=== PATIENT | female | born 1980 | race Caucasian/White ===

== ENCOUNTER 2016-09-17 16:21 | Emergency (ER) | payer BC ==
[2016-09-17] MEDS ORDERED: HYDROmorphone INJ* 1 MG/ML CARPUJECT SYRINGE IV ONE ×2 (17:17→19:29)
[2016-09-17] MEDS ORDERED: Ondansetron INJ* 2 MG/ML VIAL IV ONE ×2 (17:17→19:29)
[2016-09-17] MEDS ORDERED: NS 0.9% 1000 ML* 1,000 ML IV ONE ×2 (17:17→19:29)
[2016-09-17 17:55] LABS: Hematocrit 40 % (35-47); Hemoglobin 12.7 g/dl (12.0-16.0); Mean Corpuscular HGB Conc 32 g/dl (31-36); Mean Corpuscular Hemoglobin 26 pg (27-31); Mean Corpuscular Volume 80 fL (80-97); Mean Platelet Volume 9 um3 (7.4-10.4); Red Blood Count 4.96 10^6/ul (4.0-5.4); Red Cell Distribution Width 15 % (10.5-15)
[2016-09-17 18:07] LABS: Albumin 4.4 g/dL (3.2-5.2); BUN/Creatinine Ratio 14.3 (8-20); C Reactive Protein 6.92 mg/L (< 5.00); Calcium 9.4 mg/dL (8.6-10.3); EGFR African American 110.4 (>60); EGFR Non-African American 85.8 (>60); Globulin 3.3 g/dL (2-4); Magnesium 2.6 mg/dL (1.9-2.7); Potassium 3.4 mmol/L (3.5-5.0); Total Bilirubin 0.9 mg/dL (0.2-1.0); Total Protein 7.7 g/dL (6.4-8.9)
[2016-09-17] MEDS ORDERED: Iohexol 300* (CONTRAST) 10 ML SDV IV ONE (18:25)
[2016-09-17 18:39] LABS: Urine Bacteria Absent (Absent); Urine Bilirubin Negative (Negative); Urine Glucose Negative (Negative); Urine Nitrite Negative (Negative)
--- NOTE | 2016-09-17 19:31 | RAD ---
INDICATION: Epigastric pain status post endoscopy. COMPARISON: Comparison is made with a prior CT of the abdomen and pelvis from February 28, 2011. TECHNIQUE: A CT scan of the abdomen and pelvis was performed with intravenous and oral contrast following intravenous injection of 133 ml of Omnipaque 300 nonionic contrast. Contiguous axial sections were obtained from the lung bases through the symphysis pubis. Images were reconstructed in the coronal and sagittal planes. FINDINGS: There is mild dependent bilateral lower lobe subsegmental atelectasis. No pleural effusion is present. The liver and spleen are normal in size. The liver is decreased in attenuation consistent with fatty infiltration. No significant focal hepatic abnormality is seen. The patient is status post cholecystectomy. The pancreas appears to be within normal limits. The kidneys and adrenal glands are normal in size. No hydronephrosis is seen. No significant focal renal abnormality is seen. The aorta is normal in caliber and demonstrates homogeneous contrast opacification. No significant enlarged retroperitoneal lymph nodes are seen. The stomach is moderately distended with contrast. The small bowel and colon appear nondistended. The appendix is within normal limits. There is no evidence for diverticulitis or colitis. There is mild descending and sigmoid diverticulosis. The uterus is anteverted and mildly enlarged. There is a 1.5 cm left ovarian cyst. No free intraperitoneal air or fluid is seen. No significant focal osseous abnormality is seen. IMPRESSION: 1. NO EVIDENCE FOR ACUTE FINDING OR CAUSE FOR THE PATIENT'S ABDOMINAL PAIN IS SEEN. 2. STATUS POST CHOLECYSTECTOMY. 3. HEPATIC STENOSIS. 4. MILDLY ENLARGED UTERUS.
[2016-09-17] MEDS ORDERED: Cholestyramine Resin* 4 GM POWDER PO ONE (20:03)
[2016-09-17] MEDS ORDERED: oxyCODONE/Acetamin 5/325 MG* TAB PO ONE (20:05)
--- NOTE | 2016-09-17 20:09 | ED ---
Erinn Johnson Erika, scribed for Sarina Oliver MD on 09/17/16 at 1939 . Abdominal Pain/Female - HPI Summary HPI Summary: Patient is a 36-year-old female presenting to the ED with a CC of worsening abdominal pain for the past 3 weeks. She describes the pain as epigastric, and states it is aggravated by PO intake and BMs. Today, patient had an endoscopy at [facility] at 15:10, which did not reveal any findings. She states that pain after the endoscopy is not worse than pain before the endoscopy. Hx hemorrhoid, cholecystectomy, tonsillectomy. FHx diabetes. Pt works as a pharmacy grad intern , lives with her , and denies drinking, smoking, or using illicit drugs. PCP Dr. Garcia. - History of Current Complaint Chief Complaint: EDAbdPain Stated Complaint: ABD PAIN Hx Obtained From: Patient, Family/Director Funds Development - Hx Last Menstrual Period: 2.5 WEEKS AGO Onset/Duration: Gradual Onset, Lasting Weeks, Still Present Timing: Constant Severity Currently: Moderate Pain Intensity: 10 Pain Scale Used: 0-10 Numeric Location: Discrete At: RUQ Aggravating Factor(s): Food Alleviating Factor(s): Nothing Associated Signs and Symptoms: Positive: Negative Allergies/Adverse Reactions: Allergies Allergy/AdvReac Type Severity Reaction Status Date / Time Amoxicillin Allergy Severe Difficulty Verified 01/25/16 09:30 Breathing Aspirin Allergy Severe Difficulty Verified 01/25/16 09:30 Breathing Pseudoephedrine Allergy Severe Difficulty Verified 01/25/16 09:30 [From Actifed] Breathing Triprolidine [From Actifed] Allergy Severe Difficulty Verified 01/25/16 09:30 Breathing Doxycycline Allergy Vomiting Verified 01/25/16 09:30 Penicillin Allergy Difficulty Uncoded 01/02/16 08:38 Breathing PMH/Surg Hx/FS Hx/Imm Hx Endocrine/Hematology History: Denies: Hx Anticoagulant Therapy, Hx Diabetes, Hx Thyroid Disease Cardiovascular History: Denies: Hx Congestive Heart Failure, Hx Deep Vein Thrombosis, Hx Hypertension , Hx Myocardial Infarction, Hx Pacemaker/ICD Respiratory History: Denies: Hx Asthma, Hx Chronic Obstructive Pulmonary Disease (COPD), Hx Lung Cancer, Hx Pneumonia, Hx Pulmonary Embolism GI History: Reports: Hx Ulcer - reflux Denies: Hx Gall Bladder Disease, Hx Gastrointestinal Bleed, Hx Urosepsis History: Denies: Hx Kidney Stones, Hx Renal Disease Sensory History: Denies: Hx Hearing Aid Neurological History: Denies: Hx Dementia, Hx Migraine, Hx Seizures, Hx Transient Ischemic Attacks (TIA) Psychiatric History: Reports: Hx Anxiety, Hx Depression Denies: Hx Panic Disorder - Surgical History Surgery Procedure, Year, and Place: Carpal tunnel right 03/27. Sinus surgery 2010,. GALLBLADDER Infectious Disease History: No Infectious Disease History: Denies: Hx Clostridium Difficile, Hx Hepatitis, Hx Human Immunodeficiency Virus (HIV), Hx of Known/Suspected MRSA, Hx Shingles, Hx Tuberculosis, Hx Known/ Suspected VRE, Hx Known/Suspected VRSA, History Other Infectious Disease, Traveled Outside the [place] in Last 30 Days - Family History Known Family History: Positive: Cardiac Disease, Diabetes - Social History Occupation: Employed Full-time Lives: With Family Alcohol Use: Rare Substance Use Type: Reports: None Smoking Status (MU): Never Smoked Tobacco Review of Systems Negative: Fever Positive: Abdominal Pain All Other Systems Reviewed And Are Negative: Yes Physical Exam Triage Information Reviewed: Yes Vital Signs On Initial Exam: Initial Vitals Temp Pulse Resp BP Pulse Ox 97.9 F 91 16 117/74 100 09/17/16 16:26 09/17/16 16:26 09/17/16 16:26 09/17/16 16:26 09/17/16 16:26 Vital Signs Reviewed: Yes Appearance: Positive: Well-Appearing, Pain Distress - moderate Skin: Positive: Warm, Skin Color Reflects Adequate Perfusion, Dry Eyes: Positive: EOMI, MESFIN ENT: Positive: Pharynx normal, TMs normal Neck: Positive: Supple, Nontender Respiratory/Lung Sounds: Positive: Clear to Auscultation, Breath Sounds Present. Negative: Rales, Rhonchi, Wheezes Cardiovascular: Positive: RRR, Other - No gallops. Negative: Murmur, Rub Abdomen Description: Positive: Soft, Other: - No rebound. Diffuse abdominal tenderness. Negative: Distended, Guarding Bowel Sounds: Positive: Present Musculoskeletal: Positive: Other - GLORIA, no edema Neurological: Positive: Sensory/Motor Intact, Alert, Oriented to Person Place, Time, Other - CN II-XII intact Psychiatric: Positive: Affect/Mood Appropriate Diagnostics - Vital Signs Vital Signs Temp Pulse Resp BP Pulse Ox 09/17/16 16:26 97.9 F 91 16 117/74 100 - Laboratory Lab Results: Lab Results 09/17/16 09/17/16 09/17/16 Range/Units 17:00 17:00 17:00 WBC 11.0 H (3.5-10.8) 10^3/ul RBC 4.96 (4.0-5.4) 10^6/ul Hgb 12.7 (12.0-16.0) g/dl Hct 40 (35-47) % MCV 80 (80-97) fL MCH 26 L (27-31) pg MCHC 32 (31-36) g/dl RDW 15 (10.5-15) % Plt Count 317 (150-450) 10^3/ul MPV 9 (7.4-10.4) um3 Neut % (Auto) 53.1 (38-83) % Lymph % (Auto) 40.4 (25-47) % [place] % (Auto) 5.4 (1-9) % Eos % (Auto) 0.7 (0-6) % Baso % (Auto) 0.4 (0-2) % Absolute Neuts (auto) 5.9 (1.5-7.7) 10^3/ul Absolute Lymphs (auto) 4.4 (1.0-4.8) 10^3/ul Absolute Monos (auto) 0.6 (0-0.8) 10^3/ul Absolute Eos (auto) 0.1 (0-0.6) 10^3/ul Absolute Basos (auto) 0 (0-0.2) 10^3/ul Absolute Nucleated RBC 0.01 10^3/ul Nucleated RBC % 0.1 Sodium 135 (133-145) mmol/L Potassium 3.4 L (3.5-5.0) mmol/L Chloride 99 L (101-111) mmol/L Carbon Dioxide 30 (22-32) mmol/L Anion Gap 6 (2-11) mmol/L BUN 11 (6-24) mg/dL Creatinine 0.77 (0.51-0.95) mg/dL Est GFR ( Amer) 110.4 (>60) Est GFR (Non-Af Amer) 85.8 (>60) BUN/Creatinine Ratio 14.3 (8-20) Glucose 80 (70-100) mg/dL Lactic Acid 0.7 (0.5-2.0) mmol/L Calcium 9.4 (8.6-10.3) mg/dL Magnesium 2.6 (1.9-2.7) mg/dL Total Bilirubin 0.90 (0.2-1.0) mg/dL AST 14 (13-39) U/L ALT 10 (7-52) U/L Alkaline Phosphatase 33 L (34-104) U/L C-Reactive Protein 6.92 H (< 5.00) mg/L Total Protein 7.7 (6.4-8.9) g/dL Albumin 4.4 (3.2-5.2) g/dL Globulin 3.3 (2-4) g/dL Albumin/Globulin Ratio 1.3 (1-3) Lipase 15 (11.0-82.0) U/L Urine Color Urine Appearance Urine pH (5-9) Ur Specific [place] (1.010-1.030) Urine Protein (Negative) Urine Ketones (Negative) Urine Blood (Negative) Urine Nitrate (Negative) Urine Bilirubin (Negative) Urine Urobilinogen (Negative) Ur Leukocyte Esterase (Negative) Urine WBC (Auto) (Absent) Urine RBC (Auto) (Absent) Ur Squamous Epith Cells (Absent) Urine Bacteria (Absent) Urine Glucose (Negative) 09/17/16 Range/Units 17:59 WBC (3.5-10.8) 10^3/ul RBC (4.0-5.4) 10^6/ul Hgb (12.0-16.0) g/dl Hct (35-47) % MCV (80-97) fL MCH (27-31) pg MCHC (31-36) g/dl RDW (10.5-15) % Plt Count (150-450) 10^3/ul MPV (7.4-10.4) um3 Neut % (Auto) (38-83) % Lymph % (Auto) (25-47) % [place] % (Auto) (1-9) % Eos % (Auto) (0-6) % Baso % (Auto) (0-2) % Absolute Neuts (auto) (1.5-7.7) 10^3/ul Absolute Lymphs (auto) (1.0-4.8) 10^3/ul Absolute Monos (auto) (0-0.8) 10^3/ul Absolute Eos (auto) (0-0.6) 10^3/ul Absolute Basos (auto) (0-0.2) 10^3/ul Absolute Nucleated RBC 10^3/ul Nucleated RBC % Sodium (133-145) mmol/L Potassium (3.5-5.0) mmol/L Chloride (101-111) mmol/L Carbon Dioxide (22-32) mmol/L Anion Gap (2-11) mmol/L BUN (6-24) mg/dL Creatinine (0.51-0.95) mg/dL Est GFR ( Amer) (>60) Est GFR (Non-Af Amer) (>60) BUN/Creatinine Ratio (8-20) Glucose (70-100) mg/dL Lactic Acid (0.5-2.0) mmol/L Calcium (8.6-10.3) mg/dL Magnesium (1.9-2.7) mg/dL Total Bilirubin (0.2-1.0) mg/dL AST (13-39) U/L ALT (7-52) U/L Alkaline Phosphatase (34-104) U/L C-Reactive Protein (< 5.00) mg/L Total Protein (6.4-8.9) g/dL Albumin (3.2-5.2) g/dL Globulin (2-4) g/dL Albumin/Globulin Ratio (1-3) Lipase (11.0-82.0) U/L Urine Color Straw Urine Appearance Clear Urine pH 7.0 (5-9) Ur Specific [place] 1.010 (1.010-1.030) Urine Protein Negative (Negative) Urine Ketones Negative (Negative) Urine Blood Negative (Negative) Urine Nitrate Negative (Negative) Urine Bilirubin Negative (Negative) Urine Urobilinogen Negative (Negative) Ur Leukocyte Esterase Trace H (Negative) Urine WBC (Auto) Trace(0-5/hpf) (Absent) Urine RBC (Auto) Absent (Absent) Ur Squamous Epith Cells Present H (Absent) Urine Bacteria Absent (Absent) Urine Glucose Negative (Negative) Result Diagrams: 09/17/16 17:00 09/17/16 17:00 Lab Statement: Any lab studies that have been ordered have been reviewed, and results considered in the medical decision making process. - CT CT A/P W/ CT Interpretation Completed By: Radiologist - IMPRESSION: 1. NO EVIDENCE FOR ACUTE FINDING OR CAUSE FOR THE PATIENT'S ABDOMINAL PAIN IS SEEN. 2. STATUS POST CHOLECYSTECTOMY. 3. HEPATIC STENOSIS. 4. MILDLY ENLARGED UTERUS. - EKG 17:48 Cardiac Rate: NL - at 86 bpm EKG Rhythm: Sinus Rhythm Ectopy: None EKG Interpretation: No ST elevation. No Q waves EKG Comparison: No Significant Change - from EKG 06/21/2015 Re-Evaluation - Re-Evaluation First Eval Re-Evaluation Time: 19:51 Comment: Discussed lab results and CT result Abdominal Pain Fem Course/Dx - Course Course Of Treatment: 36 yo female who reports b/l upper quadrant pain with eating for the last 3 weeks. today had a endoscopy with GI at [facility] in [place] , had bad pain before endoscopy and then the same pain after. by report endoscopy was negative, CT done here and labs were unremarkable. Pt getting dose of choleystyramine to go that was ordered by [facility] and short course of pain meds. - Diagnoses Provider Diagnoses: Abdominal pain Discharge - Discharge Plan Condition: Stable Disposition: HOME Prescriptions: oxyCODONE/Acetamin 5/325 MG* [Percocet 5/325 TAB*] 1 tab PO Q6H PRN #14 tab MDD 4 PRN Reason: Pain Patient Education Materials: Abdominal Pain (ED) Referrals: Abel Garcia MD [Primary Care Provider] - The documentation as recorded by the Erinn kaufman Erika accurately reflects the service I personally performed and the decisions made by me, Sarina Oliver MD.
[2016-09-17 21:31] VITALS: BP 104/59
== END 2016-09-17 21:29 | disposition home or self-care (01) ==
LOC: ED 16:21
DX: R10.11 Right upper quadrant pain (principal)
CPT/HCPCS: 36415; 74177; 80053; 81003; 81015; 83605; 83690; 83735; 85025; 86140; 87086; 93005; 96374; 96375; 99285; A9270-GY; J1170; J2405; Q9967

== ENCOUNTER 2017-01-03 13:19 | Emergency (ER) | payer BC ==
[2017-01-03 13:49] LABS: Hematocrit 39 % (35-47); Hemoglobin 12.7 g/dl (12.0-16.0); Mean Corpuscular HGB Conc 33 g/dl (31-36); Mean Corpuscular Hemoglobin 26 pg (27-31); Mean Corpuscular Volume 80 fL (80-97); Mean Platelet Volume 9 um3 (7.4-10.4); Red Blood Count 4.87 10^6/ul (4.0-5.4); Red Cell Distribution Width 16 % (10.5-15); White Blood Count 8.3 10^3/ul (3.5-10.8)
[2017-01-03 14:04] LABS: Albumin 4.4 g/dL (3.2-5.2); BUN/Creatinine Ratio 19.1 (8-20); Calcium 9.7 mg/dL (8.6-10.3); EGFR African American 87.7 (>60); EGFR Non-African American 68.2 (>60); Globulin 3.5 g/dL (2-4); Potassium 3.7 mmol/L (3.5-5.0); Total Bilirubin 0.7 mg/dL (0.2-1.0); Total Protein 7.9 g/dL (6.4-8.9)
--- NOTE | 2017-01-03 14:23 | RAD ---
INDICATION: Left-sided weakness COMPARISON: CT brain October 09, 2003 TECHNIQUE: Noncontrast axial source images were acquired from the skull base to the vertex. FINDINGS: Ventricles/sulci: The ventricles and cisterns are normal in size and configuration for age. Brain parenchyma: There is no focal parenchymal finding, evidence of intracranial mass, or intracranial mass effect. Intracranial hemorrhage:None. Extra-axial spaces: There are no abnormal extra axial fluid collections or evidence of extra-axial mass. Calvarium: There is no calvarial fracture or other calvarial abnormality. Scalp: There is no evidence of scalp or extracalvarial soft tissue abnormality. Paranasal sinuses/mastoid: The paranasal sinuses and mastoid air cells are clear. Other: None. IMPRESSION: NEGATIVE EXAMINATION
--- NOTE | 2017-01-03 14:24 | RAD ---
INDICATION: Left-sided weakness COMPARISON: None TECHNIQUE: An AP portable view obtained at 1350 hours is submitted. FINDINGS: Bones/Soft Tissues: There are no acute bony findings. Cardiomediastinal: The cardiomediastinal silhouette is normal. Lungs: There are no infiltrates. Pleura: There are no pleural effusions. Other: None IMPRESSION: NO ACTIVE DISEASE.
[2017-01-03] MEDS ORDERED: Iohexol 350* (CONTRAST) 500 ML MDV IV ONE (14:35)
[2017-01-03] MEDS ORDERED: Ondansetron INJ* 2 MG/ML VIAL IV ONE ×2 (15:28→20:57)
[2017-01-03] MEDS ORDERED: HYDROmorphone* 1 MG/ML 1 ML SYR IV ONE (15:28)
[2017-01-03 15:32] LABS: Urine Bacteria Absent (Absent); Urine Bilirubin Negative (Negative); Urine Glucose Negative (Negative); Urine Nitrite Negative (Negative)
--- NOTE | 2017-01-03 15:36 | RAD ---
INDICATION: Left-sided weakness COMPARISON: CT brain same date TECHNIQUE: Axial source images were acquired with coronal and sagittal reconstructions. CT angiographic technique was utilized with injection of 80 mL Omnipaque 350. FINDINGS: Aortic arch: There are no CT angiogram abnormalities of the arch or the great vessels arising from the arch. The right common carotid artery originates from the innominate ribs and a normal variant. Right carotid: The internal carotid artery, carotid bifurcation, extracranial portions of the internal carotid artery, carotid artery at the skull base, carotid siphon, and carotid termination appear patent. The extracranial internal carotid artery is very small in caliber cephalad to the bulb. Left carotid:The internal carotid artery, carotid bifurcation, extracranial portions of the internal carotid artery, carotid artery at the skull base, carotid siphon, and carotid termination appear patent. The extra cranial internal carotid artery is very small in caliber cephalad to the bulb Right middle and anterior cerebral arteries: There are no CT angiographic abnormalities of the middle or anterior cerebral arteries. The vessels appear relatively small in caliber. Left middle and anterior cerebral arteries: There are no CT angiographic abnormalities of the middle or anterior cerebral arteries the vessels appear relatively small in caliber Right vertebral: The CT angiographic appearance of the vertebral artery is normal. Left vertebral: The CT angiographic appearance of the vertebral artery is normal. Basilar artery: The basilar artery and basilar tip appear normal. Posterior cerebral arteries: The distal distribution of the right and left posterior cerebral arteries is normal. [place] of [place]: The CT angiographic appearance of the [place] of [place] is normal. Source images show no evidence of mass or adenopathy within the neck. There are no focal parenchymal abnormalities or abnormal areas of enhancement. IMPRESSION: Apparent diffuse vasoconstriction with small caliber vessels. The extracranial internal carotid arteries in particular appear small in caliber. Exposure to [employer]OPMENT [employer] stimulants is one possible etiology. .CPT II Codes: 3100F PQRS
[2017-01-03 15:53] LABS: C Reactive Protein 9.02 mg/L (< 5.00)
[2017-01-03 15:53] LABS: Benzodiazepine Urine Screen None Detected (None Detect)
[2017-01-03] MEDS ORDERED: NS 0.9% 1000 ML* 1,000 ML IV ONE (16:33)
[2017-01-03 16:53] LABS: Erythrocyte Sed Rate 19 mm/Hr (0-14)
--- NOTE | 2017-01-03 20:42 | ED ---
Rob Johnson Aidan, scribed for Delano Olivo MD on 01/03/17 at 1408 . 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 While at work, she mentioned a pain in her chest just before her left arm went limp and numb. According to a bobj developer of the patient, she then blacked out cold before she was taken to the ED by EMS. While in the ED, she mentioned numbness in her mouth and was hardly able to speak properly (slurred speech). She also complained of bilateral lower extremity edema with associated pain that has persisted since a colonoscopy surgery she had on November 17. After her colonoscopy surgery, she was told that she may have received nerve damage that may be causing her lower extremity symptoms. - History Of Current Complaint Hx Obtained From: Patient, Family/Regulatory Law Specialist Onset/Duration: Sudden Onset, Lasting Hours, Still Present Timing: Intermittent, Lasting: Severity Currently: Moderate Severity Initially: Moderate Location: Pain At: - lower extremities bilaterally, pain in the face with associated swelling, episode of chest pain, left arm numbness and tingling Character: Unable To Describe - numbness and tingling in the left arm Aggravating Factor(s): unknown Alleviating Factor(s): unknown Associated Signs And Symptoms: Positive: Confusion, Syncope - Pt's clinical care coordinator mentioned her "blacking out", Chest Pain, Other - bilateral lower extremity edema with associated pain, left arm numbness, facial swelling wih associated pain, slurred speech Related History: Recent Hospitalization - Colonoscopy November 17 - Allergies/Home Medications Allergies/Adverse Reactions: Allergies Allergy/AdvReac Type Severity Reaction Status Date / Time Amoxicillin Allergy Severe Difficulty Verified 01/03/17 16:28 Breathing Aspirin Allergy Severe Difficulty Verified 01/03/17 16:28 Breathing Pseudoephedrine Allergy Severe Difficulty Verified 01/03/17 16:28 [From Actifed] Breathing Triprolidine [From Actifed] Allergy Severe Difficulty Verified 01/03/17 16:28 Breathing Doxycycline Allergy Vomiting Verified 01/03/17 16:28 Penicillin Allergy Difficulty Uncoded 01/03/17 16:29 Breathing Home Medications: Home Medications Bethanechol TAB* [Urecholine TAB*] 5 mg PO TID 01/03/17 [History Confirmed 01/03] Ciprofloxacin TAB* [Cipro 500 MG TAB*] 500 mg PO BID 01/03/17 [History Confirmed 01/03/17] Erythromycin TAB [EryTab TAB] 250 mg PO TID 01/03/17 [History Confirmed 01/03/17 ] Lidocaine 2% JELLY* 1 applic GA SEE INSTRUCTIONS 01/03/17 [History Confirmed ] Ofloxacin 0.3% OTIC.EMETERIO* [Floxin 0.3% OTIC.EMETERIO*] 3 drop .SEE ORDER SEE INSTRUCTIONS 01/03/17 [History Confirmed 01/03/17] Tramadol HCl [Ultram] 50 mg PO Q6HR PRN 01/03/17 [History Confirmed 01/03/17] metroNIDAZOLE TAB* [Flagyl 250 mg TAB*] 500 mg PO TID 01/03/17 [History Confirmed 01/03/17] PMH/Surg Hx/FS Hx/Imm Hx Endocrine/Hematology History: Denies: Hx Anticoagulant Therapy, Hx Diabetes, Hx Thyroid Disease Cardiovascular History: Denies: Hx Congestive Heart Failure, Hx Deep Vein Thrombosis, Hx Hypertension , Hx Myocardial Infarction, Hx Pacemaker/ICD Respiratory History: Denies: Hx Asthma, Hx Chronic Obstructive Pulmonary Disease (COPD), Hx Lung Cancer, Hx Pneumonia, Hx Pulmonary Embolism GI History: Reports: Hx Ulcer - reflux Denies: Hx Gall Bladder Disease, Hx Gastrointestinal Bleed, Hx Urosepsis History: Denies: Hx Kidney Stones, Hx Renal Disease Sensory History: Denies: Hx Hearing Aid Neurological History: Denies: Hx Dementia, Hx Migraine, Hx Seizures, Hx Transient Ischemic Attacks (TIA) Psychiatric History: Reports: Hx Anxiety, Hx Depression Denies: Hx Panic Disorder - Surgical History Surgery Procedure, Year, and Place: Carpal tunnel right 03/27. Sinus surgery 2010,. GALLBLADDER Infectious Disease History: No Infectious Disease History: Denies: Hx Clostridium Difficile, Hx Hepatitis, Hx Human Immunodeficiency Virus (HIV), Hx of Known/Suspected MRSA, Hx Shingles, Hx Tuberculosis, Hx Known/ Suspected VRE, Hx Known/Suspected VRSA, History Other Infectious Disease, Traveled Outside the [place] in Last 30 Days - Family History Known Family History: Positive: Cardiac Disease, Diabetes - Social History Occupation: Employed Full-time Lives: With Family Alcohol Use: Rare Substance Use Type: Reports: None Smoking Status (MU): Never Smoked Tobacco Review of Systems Constitutional: Negative Eyes: Negative ENT: Other - facial swelling with associated pain Negative: Epistaxis, Dental Pain, Sore Throat, Ear Ache, Nasal Discharge Positive: Chest Pain. Negative: Palpitations Respiratory: Negative Gastrointestinal: Negative Genitourinary: Negative Positive: Myalgia - bilateral lower extremity pain, Edema - bilateral lower extremities. Negative: Arthralgia, Decreased ROM Skin: Negative Positive: Numbness - left arm numbness, Syncope - reported episode of "black out ", Slurred Speech. Negative: Weakness, Paresthesia Psychological: Normal All Other Systems Reviewed And Are Negative: Yes Physical Exam Triage Information Reviewed: Yes Vital Signs On Initial Exam: Initial Vitals Temp Pulse Resp BP Pulse Ox 98.6 F 89 18 120/63 98 01/03/17 13:24 01/03/17 13:24 01/03/17 13:24 01/03/17 13:24 01/03/17 13:24 Vital Signs Reviewed: Yes Appearance: Positive: Well-Appearing, No Pain Distress Skin: Positive: Warm, Skin Color Reflects Adequate Perfusion, Dry Head/Face: Positive: Normal Head/Face Inspection Eyes: Positive: Normal, MESFIN ENT: Positive: Normal ENT inspection, Other - speaks slowly and haultingly with clenched teeth, no facial bruise or other bruising Neck: Positive: Supple, Nontender Respiratory/Lung Sounds: Positive: Clear to Auscultation, Breath Sounds Present Cardiovascular: Positive: RRR Abdomen Description: Positive: Nontender, Soft Bowel Sounds: Positive: Present Musculoskeletal: Positive: Normal. Negative: Strength/ROM Intact - She does not move her left arm and moves her left leg weakly Neurological: Positive: Normal, Sensory/Motor Intact, Alert, Oriented to Person Place, Time, CN Intact II-III Psychiatric: Positive: Other - she resists the exam, speaks slowly and haultingly with clenched teeth - Madalyn Coma Scale Coma Scale Total: 15 Diagnostics - Vital Signs Vital Signs Temp Pulse Resp BP Pulse Ox 01/03/17 13:27 98.6 F 97 16 120/63 99 01/03/17 13:24 98.6 F 89 18 120/63 98 - Laboratory Lab Results: Lab Results 01/03/17 01/03/17 01/03/17 Range/Units 13:41 13:41 13:41 WBC 8.3 (3.5-10.8) 10^3/ul RBC 4.87 (4.0-5.4) 10^6/ul Hgb 12.7 (12.0-16.0) g/dl Hct 39 (35-47) % MCV 80 (80-97) fL MCH 26 L (27-31) pg MCHC 33 (31-36) g/dl RDW 16 H (10.5-15) % Plt Count 308 (150-450) 10^3/ul MPV 9 (7.4-10.4) um3 Neut % (Auto) 57.3 (38-83) % Lymph % (Auto) 34.7 (25-47) % [place] % (Auto) 5.7 (1-9) % Eos % (Auto) 1.0 (0-6) % Baso % (Auto) 1.3 (0-2) % Absolute Neuts (auto) 4.8 (1.5-7.7) 10^3/ul Absolute Lymphs (auto) 2.9 (1.0-4.8) 10^3/ul Absolute Monos (auto) 0.5 (0-0.8) 10^3/ul Absolute Eos (auto) 0.1 (0-0.6) 10^3/ul Absolute Basos (auto) 0.1 (0-0.2) 10^3/ul Absolute Nucleated RBC 0 10^3/ul Nucleated RBC % 0 ESR 19 H (0-14) mm/Hr Sodium 134 (133-145) mmol/L Potassium 3.7 (3.5-5.0) mmol/L Chloride 98 L (101-111) mmol/L Carbon Dioxide 27 (22-32) mmol/L Anion Gap 9 (2-11) mmol/L BUN 18 (6-24) mg/dL Creatinine 0.94 (0.51-0.95) mg/dL Est GFR ( Amer) 87.7 (>60) Est GFR (Non-Af Amer) 68.2 (>60) BUN/Creatinine Ratio 19.1 (8-20) Glucose 97 (70-100) mg/dL Lactic Acid 1.5 (0.5-2.0) mmol/L Calcium 9.7 (8.6-10.3) mg/dL Total Bilirubin 0.70 (0.2-1.0) mg/dL AST 14 (13-39) U/L ALT 14 (7-52) U/L Alkaline Phosphatase 35 (34-104) U/L Troponin I 0.00 (<0.04) ng/mL C-Reactive Protein 9.02 H (< 5.00) mg/L Total Protein 7.9 (6.4-8.9) g/dL Albumin 4.4 (3.2-5.2) g/dL Globulin 3.5 (2-4) g/dL Albumin/Globulin Ratio 1.3 (1-3) Urine Color Urine Appearance Urine pH (5-9) Ur Specific [place] (1.010-1.030) Urine Protein (Negative) Urine Ketones (Negative) Urine Blood (Negative) Urine Nitrate (Negative) Urine Bilirubin (Negative) Urine Urobilinogen (Negative) Ur Leukocyte Esterase (Negative) Urine WBC (Auto) (Absent) Urine RBC (Auto) (Absent) Ur Squamous Epith Cells (Absent) Urine Bacteria (Absent) Urine Glucose (Negative) Urine Opiates Screen (None Detect) Ur Barbiturates Screen (None Detect) Ur Phencyclidine Scrn (None Detect) Ur Amphetamines Screen (None Detect) U Benzodiazepines Scrn (None Detect) Urine Cocaine Screen (None Detect) U Cannabinoids Screen (None Detect) 01/03/17 01/03/17 Range/Units 15:18 15:18 WBC (3.5-10.8) 10^3/ul RBC (4.0-5.4) 10^6/ul Hgb (12.0-16.0) g/dl Hct (35-47) % MCV (80-97) fL MCH (27-31) pg MCHC (31-36) g/dl RDW (10.5-15) % Plt Count (150-450) 10^3/ul MPV (7.4-10.4) um3 Neut % (Auto) (38-83) % Lymph % (Auto) (25-47) % [place] % (Auto) (1-9) % Eos % (Auto) (0-6) % Baso % (Auto) (0-2) % Absolute Neuts (auto) (1.5-7.7) 10^3/ul Absolute Lymphs (auto) (1.0-4.8) 10^3/ul Absolute Monos (auto) (0-0.8) 10^3/ul Absolute Eos (auto) (0-0.6) 10^3/ul Absolute Basos (auto) (0-0.2) 10^3/ul Absolute Nucleated RBC 10^3/ul Nucleated RBC % ESR (0-14) mm/Hr Sodium (133-145) mmol/L Potassium (3.5-5.0) mmol/L Chloride (101-111) mmol/L Carbon Dioxide (22-32) mmol/L Anion Gap (2-11) mmol/L BUN (6-24) mg/dL Creatinine (0.51-0.95) mg/dL Est GFR ( Amer) (>60) Est GFR (Non-Af Amer) (>60) BUN/Creatinine Ratio (8-20) Glucose (70-100) mg/dL Lactic Acid (0.5-2.0) mmol/L Calcium (8.6-10.3) mg/dL Total Bilirubin (0.2-1.0) mg/dL AST (13-39) U/L ALT (7-52) U/L Alkaline Phosphatase (34-104) U/L Troponin I (<0.04) ng/mL C-Reactive Protein (< 5.00) mg/L Total Protein (6.4-8.9) g/dL Albumin (3.2-5.2) g/dL Globulin (2-4) g/dL Albumin/Globulin Ratio (1-3) Urine Color Straw Urine Appearance Clear Urine pH 6.0 (5-9) Ur Specific [place] 1.013 (1.010-1.030) Urine Protein Negative (Negative) Urine Ketones Negative (Negative) Urine Blood 1+ H (Negative) Urine Nitrate Negative (Negative) Urine Bilirubin Negative (Negative) Urine Urobilinogen Negative (Negative) Ur Leukocyte Esterase Trace H (Negative) Urine WBC (Auto) Trace(0-5/hpf) (Absent) Urine RBC (Auto) Trace(0-2/hpf) (Absent) Ur Squamous Epith Cells Present H (Absent) Urine Bacteria Absent (Absent) Urine Glucose Negative (Negative) Urine Opiates Screen None detected (None Detect) Ur Barbiturates Screen None detected (None Detect) Ur Phencyclidine Scrn None detected (None Detect) Ur Amphetamines Screen None detected (None Detect) U Benzodiazepines Scrn None detected (None Detect) Urine Cocaine Screen None detected (None Detect) U Cannabinoids Screen None detected (None Detect) Result Diagrams: 01/03/17 13:41 01/03/17 13:41 Lab Statement: Any lab studies that have been ordered have been reviewed, and results considered in the medical decision making process. - Radiology CHEST X-RAY Xray Interpretation: No Acute Changes - IMPRESSION: No active disease Radiology Interpretation Completed By: Radiologist - CT BRAIN CT CT Interpretation: No Acute Changes - IMPRESSION: Negative examination CT Interpretation Completed By: Radiologist HEAD CTA CT Interpretation: Positive (See Comments) - IMPRESSION: Apparent diffuse vasoconstriction with small caliber vessels. The extracranial internal carotid arteries in particular appear small in caliber. 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 CT Interpretation Completed By: Radiologist - EKG EKG 1317 Cardiac Rate: NL - 100 BPM EKG Rhythm: Sinus Tachycardia EKG Interpretation: BOARDERLINE PROLONGED QT INTERVAL Re-Evaluation - Re-Evaluation First Eval Re-Evaluation Time: 17:20 - The patient is getting gradually better and is now more responsive to questions. Change: Improved Second Eval Re-Evaluation Time: 17:46 - The patient still claims to be feeling better. Change: Improved Complex Multi-Symp Course/Dx Course Of Treatment: This is a 36 y/o female presenting to the ED with AMS. She complains of a an episode of CP, followed by left arm numbness and a syncopal event. While in the ED, she mentioned facial swelling with associated pain. She was hardly able to speak properly. She then mentioned having bilateral lower extremity edemas that have persisted and worsened since her colonoscopy on November 17. She was resistant on examination, spoke slowly and haultingly with clenched teeth, did not move her left arm at all, and moved her left leg weakly. Brain CT and chest x-ray were negative. Head CTA revealed apparent diffuse vasoconstriction with small caliber vessels. Hematology revealed a, MHC of 26 and a RDW of 16, while chemistry revealed chloride of 98. C-reactive protein was 9.02. Urine indicated urine blood of 1+, urine leukocyte esterace to be trace (H), and Ur squamous epith cells to be present (H). - Diagnoses Provider Diagnoses: CVA (cerebral vascular accident) - Physician Notifications Discussed Care Of Patient With: Dr. Rico (Neurology), Dr. Pabon MARLEY Time Discussed With Above Provider: 14:20 - Dr. Rico requested a brain CTA. Dr. Olivo spoke with Dr. Rico again to discuss radiology results at roughly 1615. At 1651, Dr. Olivo spoke with the transfer center about the patient's complaint. At 1740, Dr. Olivo discussed the patient's care with Dr. Quiñones and discussed possible transfer. At. 1835, Dr. Olivo discussed transfer with Dr. Pabon, who is a closer transfer option. Discharge - Discharge Plan Condition: Stable Disposition: TRANS HIGHER LVL OF CARE FAC The documentation as recorded by the Rob kaufman Aidan accurately reflects the service I personally performed and the decisions made by me, Delano Olivo MD.
[2017-01-03 20:49] VITALS: BP 112/70
[2017-01-03] MEDS ORDERED: Ondansetron INJ* 2 MG/ML VIAL ONE (20:57)
== END 2017-01-03 21:04 | disposition short-term general hospital (02) ==
LOC: ED 13:19
DX: I63.9 Cerebral infarction, unspecified (principal); R47.81 Slurred speech; M79.605 Pain in left leg; M79.604 Pain in right leg; R55 Syncope and collapse
CPT/HCPCS: 36415; 70450; 70496; 70498; 71010; 80053; 80307; 81003; 81015; 83605; 84484; 85025; 85652; 86140; 87077; 87086; 93005; 99285; J1170; J2405; Q9967

== ENCOUNTER → 2017-01-27 12:25 | Emergency (ER) | payer BC ==
[~2017-01-27 12:25] MED LIST: Morphine INJ* 4 MG/ML 1 ML SYRINGE IV ONE; Ondansetron INJ* 2 MG/ML VIAL IV ONE
--- NOTE | 2017-01-27 15:35 | RAD ---
INDICATION: Heavy vaginal bleeding and abdominal pain. COMPARISON: Comparison is made with the prior pelvic ultrasound from February 28, 2011. TECHNIQUE: Multiple real-time transabdominal and transvaginal images of the pelvis were obtained. FINDINGS: The uterus is upper limits of normal in size and normal in shape. The uterus measured 10.4 x 4.7 x 5.7 cm. The endometrial echo measured 0.9 cm in thickness. Note is made of nabothian cysts. The right ovary measured 2.5 x 1.7 x 2.0 cm. The left ovary measured 2.9 x 1.3 x 2.6 cm. There is vascular flow within both ovaries. No free intraperitoneal fluid is seen. IMPRESSION: NEGATIVE EXAM.
[2017-01-27 15:47] LABS: Hematocrit 38 % (35-47); Mean Corpuscular HGB Conc 32 g/dl (31-36); Mean Corpuscular Hemoglobin 26 pg (27-31); Mean Corpuscular Volume 81 fL (80-97); Mean Platelet Volume 9 um3 (7.4-10.4); Red Blood Count 4.67 10^6/ul (4.0-5.4); Red Cell Distribution Width 16 % (10.5-15); White Blood Count 8.2 10^3/ul (3.5-10.8)
[2017-01-27 16:06] LABS: ALT 9 U/L (7-52); AST 13 U/L (13-39); Alkaline Phosphatase 36 U/L (34-104); Anion Gap 7 mmol/L (2-11); BUN/Creatinine Ratio 21.3 (8-20); Blood Urea Nitrogen 17 mg/dL (6-24); C Reactive Protein 14.13 mg/L (< 5.00); CO2 Carbon Dioxide 28 mmol/L (22-32); Chloride 101 mmol/L (101-111); EGFR Non-African American 81.6 (>60); Glucose 91 mg/dL (70-100); Lipase 23 U/L (11.0-82.0); Potassium 3.2 mmol/L (3.5-5.0); Sodium 136 mmol/L (133-145)
[2017-01-27] MEDS: NS 0.9% 1000 ML* 2,000 ML IV ONE (16:07)
[2017-01-27 17:11] VITALS: BP 117/73
--- NOTE | 2017-01-27 17:46 | ED ---
Shelley Johnson Alfonso, scribed for Vu Chapa MD on 01/27/17 at 1408 . Abdominal Pain/Female - HPI Summary HPI Summary: This patient is a 37 year old female presenting to [facility] c/o sharp abdominal pain that began today. The pain starts in her upper abdomen and radiates to her suprapubic region. She rates the pain 9/10 in severity. Symptoms aggravated and alleviated by nothing. She reports lightheadedness, diarrhea, dysuria, and vaginal bleeding. She began spotting yesterday, but the bleeding became much worst today. She reports using 8 pads, 16 large blood clots, and white/yellow vaginal discharge today. LNMP 2.5 weeks ago. P:1 A:0. PSHx of Cholecystectomy. - History of Current Complaint Chief Complaint: EDAbdPain Stated Complaint: ABD PAIN, HEAVY VAGINAL BLEEDING Time Seen by Provider: 01/27/17 13:51 Hx Obtained From: Patient Hx Last Menstrual Period: 2.5 WEEKS AGO Onset/Duration: Sudden Onset, Lasting Hours - Earlier today, Still Present Timing: Hours - Earlier today Severity Initially: Severe Severity Currently: Severe Pain Intensity: 9 Pain Scale Used: 0-10 Numeric Location: Other - Upper abdomen Radiates: Yes Radiates to: Other - Suprapubic Character: Sharp Aggravating Factor(s): Nothing Alleviating Factor(s): Nothing Associated Signs and Symptoms: Positive: Urinary Symptoms - Positive dysuria, Vaginal Bleeding - Heavy bleeding that required 8 pads today. 16 large blood clots and white/yellow vaginal discharge., Diarrhea, Other: - Positive lightheadedness Allergies/Adverse Reactions: Allergies Allergy/AdvReac Type Severity Reaction Status Date / Time Amoxicillin Allergy Severe Difficulty Verified 01/03/17 16:28 Breathing Aspirin Allergy Severe Difficulty Verified 01/03/17 16:28 Breathing Pseudoephedrine Allergy Severe Difficulty Verified 01/03/17 16:28 [From Actifed] Breathing Triprolidine [From Actifed] Allergy Severe Difficulty Verified 01/03/17 16:28 Breathing Doxycycline Allergy Vomiting Verified 01/03/17 16:28 Penicillin Allergy Difficulty Uncoded 01/03/17 16:29 Breathing PMH/Surg Hx/FS Hx/Imm Hx Endocrine/Hematology History: Denies: Hx Anticoagulant Therapy, Hx Diabetes, Hx Thyroid Disease Cardiovascular History: Denies: Hx Congestive Heart Failure, Hx Deep Vein Thrombosis, Hx Hypertension , Hx Myocardial Infarction, Hx Pacemaker/ICD Respiratory History: Denies: Hx Asthma, Hx Chronic Obstructive Pulmonary Disease (COPD), Hx Lung Cancer, Hx Pneumonia, Hx Pulmonary Embolism GI History: Reports: Hx Ulcer - reflux Denies: Hx Gall Bladder Disease, Hx Gastrointestinal Bleed, Hx Urosepsis History: Denies: Hx Kidney Stones, Hx Renal Disease Sensory History: Denies: Hx Hearing Aid Neurological History: Denies: Hx Dementia, Hx Migraine, Hx Seizures, Hx Transient Ischemic Attacks (TIA) Psychiatric History: Reports: Hx Anxiety, Hx Depression Denies: Hx Panic Disorder - Surgical History Surgery Procedure, Year, and Place: Carpal tunnel right 03/27. Sinus surgery 2010,. GALLBLADDER Infectious Disease History: Denies: Hx Clostridium Difficile, Hx Hepatitis, Hx Human Immunodeficiency Virus (HIV), Hx of Known/Suspected MRSA, Hx Shingles, Hx Tuberculosis, Hx Known/ Suspected VRE, Hx Known/Suspected VRSA, History Other Infectious Disease, Traveled Outside the [place] in Last 30 Days - Family History Known Family History: Positive: Cardiac Disease, Diabetes - Social History Alcohol Use: Rare Substance Use Type: Reports: None Smoking Status (MU): Never Smoked Tobacco Review of Systems Positive: Abdominal Pain - Sharp abdominal pain that began today. The pain starts in her upper abdomen and radiates to her suprapubic region, Diarrhea Positive: pain - Dysuria Neurological: Other - lightheadedness All Other Systems Reviewed And Are Negative: Yes Physical Exam - Summary Physical Exam Summary: Gen: ill-appearing, moderate pain distress Skin: warm, color, dry Head: normal Eyes: EOMI, MESFIN ENT: normal Neck: supple, nontender Resp: CTA, breath sounds present, lungs clear to auscultation. Cardio: RRR Abd: Tenderness in the suprapubic and periumbilical regions of the abdomen. No CVA tenderness. Bowel: present Musc: normal, strength/ROM intact Neuro: normal, sensory/motor intact, A&O x3 Psych: affect/mood appropriate Triage Information Reviewed: Yes Vital Signs On Initial Exam: Initial Vitals Temp Pulse Resp BP Pulse Ox 96.8 F 97 17 128/96 97 01/27/17 12:28 01/27/17 12:28 01/27/17 12:28 01/27/17 12:28 01/27/17 12:28 Vital Signs Reviewed: Yes Diagnostics - Vital Signs Vital Signs Temp Pulse Resp BP Pulse Ox 01/27/17 12:28 96.8 F 97 17 128/96 97 - Laboratory Lab Results: Lab Results 01/27/17 01/27/17 01/27/17 Range/Units 15:30 15:30 15:30 WBC 8.2 (3.5-10.8) 10^3/ul RBC 4.67 (4.0-5.4) 10^6/ul Hgb 12.0 (12.0-16.0) g/dl Hct 38 (35-47) % MCV 81 (80-97) fL MCH 26 L (27-31) pg MCHC 32 (31-36) g/dl RDW 16 H (10.5-15) % Plt Count 284 (150-450) 10^3/ul MPV 9 (7.4-10.4) um3 Neut % (Auto) 62.3 (38-83) % Lymph % (Auto) 30.7 (25-47) % [place] % (Auto) 4.7 (1-9) % Eos % (Auto) 1.6 (0-6) % Baso % (Auto) 0.7 (0-2) % Absolute Neuts (auto) 5.1 (1.5-7.7) 10^3/ul Absolute Lymphs (auto) 2.5 (1.0-4.8) 10^3/ul Absolute Monos (auto) 0.4 (0-0.8) 10^3/ul Absolute Eos (auto) 0.1 (0-0.6) 10^3/ul Absolute Basos (auto) 0.1 (0-0.2) 10^3/ul Absolute Nucleated RBC 0 10^3/ul Nucleated RBC % 0 INR (Anticoag Therapy) 0.92 (0.89-1.11) APTT 29.5 (26.0-36.3) seconds Sodium 136 (133-145) mmol/L Potassium 3.2 L (3.5-5.0) mmol/L Chloride 101 (101-111) mmol/L Carbon Dioxide 28 (22-32) mmol/L Anion Gap 7 (2-11) mmol/L BUN 17 (6-24) mg/dL Creatinine 0.80 (0.51-0.95) mg/dL Est GFR ( Amer) 105.0 (>60) Est GFR (Non-Af Amer) 81.6 (>60) BUN/Creatinine Ratio 21.3 H (8-20) Glucose 91 (70-100) mg/dL Lactic Acid (0.5-2.0) mmol/L Calcium 9.0 (8.6-10.3) mg/dL Total Bilirubin 0.80 (0.2-1.0) mg/dL AST 13 (13-39) U/L ALT 9 (7-52) U/L Alkaline Phosphatase 36 (34-104) U/L C-Reactive Protein 14.13 H (< 5.00) mg/L Total Protein 7.0 (6.4-8.9) g/dL Albumin 4.0 (3.2-5.2) g/dL Globulin 3.0 (2-4) g/dL Albumin/Globulin Ratio 1.3 (1-3) Lipase 23 (11.0-82.0) U/L Beta HCG, Quant < 0.60 mIU/mL 01/27/17 Range/Units 15:30 WBC (3.5-10.8) 10^3/ul RBC (4.0-5.4) 10^6/ul Hgb (12.0-16.0) g/dl Hct (35-47) % MCV (80-97) fL MCH (27-31) pg MCHC (31-36) g/dl RDW (10.5-15) % Plt Count (150-450) 10^3/ul MPV (7.4-10.4) um3 Neut % (Auto) (38-83) % Lymph % (Auto) (25-47) % [place] % (Auto) (1-9) % Eos % (Auto) (0-6) % Baso % (Auto) (0-2) % Absolute Neuts (auto) (1.5-7.7) 10^3/ul Absolute Lymphs (auto) (1.0-4.8) 10^3/ul Absolute Monos (auto) (0-0.8) 10^3/ul Absolute Eos (auto) (0-0.6) 10^3/ul Absolute Basos (auto) (0-0.2) 10^3/ul Absolute Nucleated RBC 10^3/ul Nucleated RBC % INR (Anticoag Therapy) (0.89-1.11) APTT (26.0-36.3) seconds Sodium (133-145) mmol/L Potassium (3.5-5.0) mmol/L Chloride (101-111) mmol/L Carbon Dioxide (22-32) mmol/L Anion Gap (2-11) mmol/L BUN (6-24) mg/dL Creatinine (0.51-0.95) mg/dL Est GFR ( Amer) (>60) Est GFR (Non-Af Amer) (>60) BUN/Creatinine Ratio (8-20) Glucose (70-100) mg/dL Lactic Acid 0.8 (0.5-2.0) mmol/L Calcium (8.6-10.3) mg/dL Total Bilirubin (0.2-1.0) mg/dL AST (13-39) U/L ALT (7-52) U/L Alkaline Phosphatase (34-104) U/L C-Reactive Protein (< 5.00) mg/L Total Protein (6.4-8.9) g/dL Albumin (3.2-5.2) g/dL Globulin (2-4) g/dL Albumin/Globulin Ratio (1-3) Lipase (11.0-82.0) U/L Beta HCG, Quant mIU/mL Result Diagrams: 01/27/17 15:30 01/27/17 15:30 Lab Statement: Any lab studies that have been ordered have been reviewed, and results considered in the medical decision making process. - Additional Comments Diagnostic Additional Comments: Transvaginal US: Negative exam. Re-Evaluation - Re-Evaluation First Eval Re-Evaluation Time: 16:55 - Discussed imaging and lab results Second Eval Re-Evaluation Time: 17:39 - Discussed plan discharge Abdominal Pain Fem Course/Dx - Course Course Of Treatment: NO CRITICAL CARE TIME. DICUSSED RESULTS WITH PATIENT. AMBULATED IN ED. DISCHARGE HOME STABLE. - Diagnoses Provider Diagnoses: DUB (dysfunctional uterine bleeding), Abdominal pain Discharge - Discharge Plan Condition: Stable Disposition: HOME Prescriptions: oxyCODONE/Acetamin 5/325 MG* [Percocet 5/325 TAB*] 1 tab PO Q4H PRN #15 tab MDD 6 PRN Reason: Pain Patient Education Materials: Dysfunctional Uterine Bleeding (ED), Abdominal Pain (ED) Referrals: Abel Garcia MD [Primary Care Provider] - [facility] [Provider Group] Additional Instructions: FOLLOW UP WITH YOUR DOCTOR AND OBGYN. RETURN TO THE EMERGENCY DEPARTMENT FOR ANY WORSENING OF YOUR CONDITION; EXCESSIVE BLEEDING, YOU FEEL LIKE YOU ARE GOING TO PASS OUT, PAIN, YOU FEEL ILL OR QUESTIONS OR CONCERNS. The documentation as recorded by the Shelley kaufman Alfonso accurately reflects the service I personally performed and the decisions made by me, Vu Chapa MD.
== END | disposition home or self-care (01) ==
LOC: ED 12:25
DX: N93.8 Other specified abnormal uterine and vaginal bleeding (principal); R10.9 Unspecified abdominal pain; R30.0 Dysuria; R42 Dizziness and giddiness
CPT/HCPCS: 36415; 76830; 80053; 83605; 83690; 84702; 85025; 85610; 85730; 86140; 96374; 96375; 99283; J2270; J2405

== ENCOUNTER 2017-08-24 07:52 | Emergency (ER) | payer BC ==
[2017-08-24 08:15] VITALS: BP 129/83
--- NOTE | 2017-08-24 08:55 | UC ---
Respiratory Complaint HPI - HPI Summary HPI Summary: ONSET OF FATIGUE, FEVER TMAX 102.3, KERNS, BODY ACHES, ST, COUGH AND DRAINAGE YESTERDAY. NO N/V/D. - History of Current Complaint Chief Complaint: UCGeneralIllness Stated Complaint: SORE THROAT BODYACHES Time Seen by Provider: 08/24/17 08:12 Hx Obtained From: Patient Hx Last Menstrual Period: 1 week ago Onset/Duration: Gradual Onset, Lasting Days, Still Present Timing: Constant Severity Initially: Moderate Severity Currently: Moderate Pain Intensity: 9 Pain Scale Used: 0-10 Numeric Character: Cough: Nonproductive Aggravating Factors: Nothing Alleviating Factors: Nothing Associated Signs And Symptoms: Positive: Fever, URI, Nasal Congestion, Hoarseness, Sinus Discomfort - Allergies/Home Medications Allergies/Adverse Reactions: Allergies Allergy/AdvReac Type Severity Reaction Status Date / Time Amoxicillin Allergy Severe Difficulty Verified 08/24/17 08:16 Breathing Aspirin Allergy Severe Difficulty Verified 08/24/17 08:16 Breathing Pseudoephedrine Allergy Severe Difficulty Verified 08/24/17 08:16 [From Actifed] Breathing Triprolidine [From Actifed] Allergy Severe Difficulty Verified 08/24/17 08:16 Breathing Doxycycline Allergy Vomiting Verified 08/24/17 08:16 Penicillin Allergy Difficulty Uncoded 08/24/17 08:16 Breathing Home Medications: Home Medications ALPRAZolam TAB* [Xanax TAB*] 0.25 mg PO BEDTIME PRN 08/24/17 [History Confirmed 08/24/17] Acetaminophen [Tylenol] 650 mg PO Q6HR PRN 08/24/17 [History Confirmed 08/24/17] Bethanechol Chloride 5 mg PO TID 08/24/17 [History Confirmed 08/24/17] Cyclobenzaprine TAB* [Flexeril 10 MG TAB*] 10 mg PO Q12HR PRN 08/24/17 [History Confirmed 08/24/17] DULoxetine DR CAP* [Cymbalta CAP*] 30 mg PO DAILY 08/24/17 [History Confirmed ] Gabapentin CAP(*) [Neurontin 300 CAP(*)] 300 mg PO TID 08/24/17 [History Confirmed 08/24/17] Nortriptyline CAP* [Pamelor CAP*] 20 mg PO BEDTIME 08/24/17 [History Confirmed 08/24/17] Omeprazole 40 mg PO DAILY 08/24/17 [History Confirmed 08/24/17] PMH/Surg Hx/FS Hx/Imm Hx GI/ History: Gastroesophageal Reflux Other History Of: Negative For: HIV, Hepatitis B, Hepatitis C, Anticoagulant Therapy - Surgical History Surgical History: Yes Surgery Procedure, Year, and Place: Carpal tunnel right 03/27. Sinus surgery 2010,. [facility] - Family History Known Family History: Positive: Cardiac Disease, Diabetes - Social History Alcohol Use: Rare Substance Use Type: None Smoking Status (MU): Never Smoked Tobacco - Immunization History Most Recent Influenza Vaccination: 2016 Most Recent Tetanus Shot: UTD Vaccination Up to Date: Yes Review of Systems Constitutional: Fever, Fatigue ENT: Sore Throat, Nasal Discharge Respiratory: Cough Cardiovascular: Negative Gastrointestinal: Negative Musculoskeletal: Myalgia Neurological: Headache All Other Systems Reviewed And Are Negative: Yes Physical Exam Triage Information Reviewed: Yes Appearance: No Pain Distress, Well-Nourished, Ill-Appearing - MILD Vital Signs: Initial Vital Signs Temp 99.7 F 08/24/17 08:10 Pulse 110 08/24/17 08:10 Resp 22 08/24/17 08:10 BP 129/83 08/24/17 08:10 Pulse Ox 97 08/24/17 08:10 Eyes: Positive: Conjunctiva Clear ENT: Positive: Hearing grossly normal, Pharynx normal, TMs normal Neck: Positive: Supple, Nontender, No Lymphadenopathy Respiratory Exam: Normal Cardiovascular Exam: Normal Abdomen Description: Positive: Soft Musculoskeletal: Positive: No Edema Neurological: Positive: Alert Psychological: Positive: Age Appropriate Behavior Skin: Negative: rashes UC Diagnostic Evaluation - Laboratory O2 Sat by Pulse Oximetry: 97 Diagnostic Studies Comment: FLU SWAB NEGATIVE. RAPID STREP NEGATIVE Respiratory Course/Dx - Differential Dx/Diagnosis Provider Diagnoses: ACUTE VIRAL SYNDROME Discharge - Discharge Plan Condition: Stable Disposition: HOME Patient Education Materials: Viral Syndrome (ED) Forms: *Work Release Referrals: Abel Garcia MD [Primary Care Provider] - If Needed Additional Instructions: FLU AND STREP TESTS BOTH NEGATIVE. YOUR SYMPTOMS ARE LIKELY VIRALLY MEDIATED AND SHOULD RESOLVE ON THEIR OWN WITH TIME. REST, HYDRATE, OTC MEDS NEEDED. SEEK FOLLOW-UP IF YOU ARE NOT IMPROVING OVER THE NEXT 1-2 WEEKS.
== END 2017-08-24 09:04 | disposition home or self-care (01) ==
LOC: UCEAST 07:52
DX: B34.9 Viral infection, unspecified (principal); K21.9 Gastro-esophageal reflux disease without esophagitis
CPT/HCPCS: 87502; 87651; 99211; G0463